=== PATIENT | female | born 1985 | race African-American/Black ===

== ENCOUNTER 2017-05-20 18:55 | Emergency (ER) | payer OTHER ==
[~2017-05-20] VITALS: Ht 165.1 cm; Wt 71.0 kg
[2017-05-20 19:34] VITALS: BP 117/71
[2017-05-20 19:55] LABS: BASOPHILS % 0.3 % (0.0-2.0); EOSINOPHILS % 2.6 % (0.0-5.0); HEMATOCRIT. 23.6 % (36.0-48.0); HEMOGLOBIN. 7.3 g/dL (12.0-16.0); LYMPHOCYTES % 35.4 % (20.0-50.0); MEAN CORPUSCULAR HEMOGLOBIN 19.8 pg (28.0-32.0); MEAN CORPUSCULAR VOLUME 64.2 fL (81.0-99.0); MEAN PLATELET VOLUME 8.9 fl (7.4-10.4); MONOCYTES % 7.4 % (2.0-8.0); NEUTROPHILS % 54.3 % (40.0-76.0); PLATELET 267 x1000/uL (130-400); RED BLOOD CELL COUNT 3.68 mill/uL (4.2-5.4); RED CELL DISTRIBUTION WIDTH 20.5 % (11.6-14.6)
[2017-05-20 20:01] LABS: CARBON DIOXIDE 25 mEq/L (21-32); CHLORIDE 112 mEq/L (98-107)
[2017-05-20 20:58] LABS: PLATELET ESTIMATE NORMAL
== END 2017-05-20 20:33 | disposition home or self-care (01) ==
LOC: ER 18:55
DX: D64.9 Anemia, unspecified (principal); E87.6 Hypokalemia; F17.210 Nicotine dependence, cigarettes, uncomplicated; F12.10 Cannabis abuse, uncomplicated
CPT/HCPCS: 36415; 80053; 85025; 99284; Z7610

== ENCOUNTER 2019-11-12 15:41 | Emergency (ER) | payer OTHER ==
[~2019-11-12] VITALS: Ht 162.6 cm; Wt 80.0 kg
[2019-11-12 16:13] VITALS: BP 111/67
== END 2019-11-13 01:44 | disposition left against medical advice (07) ==
LOC: ER 15:41
DX: Z53.21 Procedure and treatment not carried out due to patient leaving prior to being seen by health care provider (principal)
CPT/HCPCS: Z7610 ×2